=== PATIENT | female | born 2000 | race Hispanic/Latino ===

== ENCOUNTER 2020-01-02 01:52 | Inpatient (IN) | payer OTHER ==
[2020-01-02] VITALS (28 sets, daily range): BP systolic 107–154; BP diastolic 57–103
[~2020-01-02] VITALS: Ht 165.1 cm; Wt 111.1 kg
[2020-01-02] MEDS ORDERED: LACTATED RINGER'S 1000 ML IV STA (03:37)
--- NOTE | 2020-01-02 03:37 | HPEPDOC ---
Obstetrical History & Physical General Date of Admission Jan 02, 2020 at 03:03 History of Present Illness Patient is a at 41.1wks by LMP. C/o ctx all day. Mild leakage of fluid in car around 0200. No VB. +FM. No headache or visual changes. Chief Complaint: Contractions, term, LOF, term Care Care: Limited Care Dating Final EDC: Dec 25, 2019 Final EDC by: LMP Antepartum Course Height (inches): 65 Pre- weight (lbs.): 187 Admission Weight (lbs.): 243 Change in Weight (lbs.): 55 Past Medical History Past Obstetrical History : Past Obstetrical History: Primgravida [employer] History: History of STD (chlamydia 2017) Past Medical History Medical History none Surgical History: Denies/None Family History Significant Family History: No pertinent family hx Family History none Social History Marital Status: Family situation: Spouse/partner home Psychosocial History: No pertinent psych hx * Smoker: non-smoker Alcohol: Denies Drugs: denies Abuse Violence Screening Have you been hit/kicked/slapp: No Have you been sexually assault: No Imunizations Tdap status: current Influenza Status: current Physical Examination Physical Examination GENERAL: Alert and oriented times three. BREAST: . ABDOMEN: Gravid and non-tender to touch. FETUS: Is vertex (VTX) by sterile vaginal examination (SVE), fetus is vertex (VTX) by US. HEART RATE: Regular rate and rhythm. LUNGS: Clear to auscultation (CTA). EXTREMITIES: No edema. SSE: +pooling, +nitrazine, +ferning Pertinent Laboratoy Data Blood Type: O+ RBC Antibody Screen: Negative HIV: Negative Hepatitis B: Negative Rapid Plasma Reagin: Nonreactive Rubella: Immune Varicella: Immune Chlamydia/Gonorrhea: Negative Group B Streptococcus: Negative Glucose Tolerance Test: 116 Anatomy Ultrasound Ultrasound Date: Oct 08, 2019 Placenta Location: Anterior Normal Anatomy: Yes Placenta Previa: No Estimated Weight (grams): 1283 Steroid Therapy Steroid Therapy: No Vaginal Examination Dilation: 1cm Effacement: 50% Station: -2 Cervical Consistency: Medium Cervical Position: Middle Presentation: Cephalic presentation Assessment Heart Rate (FHR): 150 Variability: Moderate Accelerations: Positive Decelerations: None Tocometer Contractions: Yes Frequency: irregular Multi-drug resistant Organism: No history of MDRO Assessment/Plan Assessment Patient is a at 41.1wks by LMP. She will be admitted for SROM. Will start IOL with PO Miso d/w patient. Patient counselled on expected and low but possible risk of VAVD or CD or risk of trauma to pelvic floor or perineum. Increased risk of chorio due to early SROM. Patient voiced understanding. Plan Admit and orient. Global Program Manager and consent. Diet: Regular. Group B Streptococcus (GBS) negative. Labs and intravenous (IV) per unit protocol. Counseled on Pitocin and induction of labor (IOL). Lactated Ringers (LR): Bolus 500 mL, then at 125 mL/hr. Anticipate normal spontaneous delivery (). C-S or VAVD as appropriate. Pain mgt per patient desire. Lacey Burnett MD Jan 02, 2020 03:36
[2020-01-02] MEDS ORDERED: ACETAMINOPHEN 500 MG TAB PO PRN ×2 (03:45→14:15)
[2020-01-02] MEDS ORDERED: BUTORPHANOL 2 MG/ML INJ (J0595) IV PRN (03:45)
[2020-01-02] MEDS ORDERED: diphenhydrAMINE 25MG CAP PO PRN (03:45)
[2020-01-02] MEDS ORDERED: MOM 30ML SUSPENSION UDC PO PRN (03:45)
[2020-01-02] MEDS ORDERED: PROMETHAZINE INJ 25 MG/ML VIAL (J2550) IV PRN (03:45)
[2020-01-02] MEDS ORDERED: miSOPROStol 25 MCG 1/4 TAB (S0191) PO ONE (03:45)
[2020-01-02] MEDS ORDERED: CALCIUM CARBONATE 500 MG CHEW U/D PO PRN (03:45)
[2020-01-02 04:06] LABS: BASO % 0.2 % (0.0-1.0); EOS # 0.1 10^3/uL (0.0-0.5); EOS % 0.5 % (0.0-3.0); HEMOGLOBIN 11.3 g/dl (12.0-15.5); LYMPH % 10.8 % (24.0-44.0); MEAN CORPUSCULAR HEMOGLOBIN 27.6 pg (27.0-33.0); MEAN CORPUSCULAR HGB CONC 33.2 g/dl (32.0-36.5); MEAN CORPUSCULAR VOLUME 83.1 fl (80.0-96.0); MONO # 0.9 10^3/uL (0.0-0.8); MONO % 4.7 % (0.0-5.0); NEUTROPHILS # 15.3 10^3/uL (1.5-8.5); NEUTROPHILS % 83.4 % (36.0-66.0); PLATELET COUNT, AUTOMATED 275 10^3/uL (150-450); RED BLOOD COUNT 4.09 10^6/uL (4.00-5.40); WHITE BLOOD COUNT 18.3 10^3/uL (4.0-10.0)
[2020-01-02 04:55] LABS: ALT/SGPT 11 U/L (12-78); BILIRUBIN,TOTAL 0.2 MG/DL (0.2-1.0); CREATININE FOR GFR 0.61 MG/DL (0.55-1.30); LDH LACTATE DEHYDROGENASE 177 U/L (84-246); URIC ACID 4.6 MG/DL (2.6-6.0)
[2020-01-02] MEDS: ONDANSETRON 4MG/2ML VIAL IV SCH ×2 (07:00→12:00)
[2020-01-02] MEDS: LR 1,000 ML IV SCH ×2 (07:14→11:37)
--- NOTE | 2020-01-02 08:52 | IPNPDOC ---
Obstetrical Progress Note Date of Service Jan 02, 2020 Subjective 19yo @41+1, O+, GBS- PROM at late term, augmentation of labor Objective Vital Signs Date Time Temp Pulse Resp B/P (MAP) Pulse Ox O2 Delivery O2 Flow Rate FiO2 01/02/20 07:12 97.7 90 18 144/76 (98) 97 Room Air Assessment Variability: Other (frequent breaks in monitoring with inability to determine baseling. Nurse at bedside working with patient to reposition external monitors, FHR 140-150. Maternal pulse ox placed for verification) Tocometer Contractions: Yes (TOCO repositioned to obtain contractions, palpating moderate every 2-4 min) Assessment and Plan Age: 19 : 1 Group B Streptococcus: Negative Anticipate: Vaginal Delivery Additional Comments lr @125ml/hr, continuous efm x2, evaluate for need for additional augmentation with pitocin, if unable to monitor, consider FSE, evaluate for cervical dilation as indicated, anticipate vaginal delivery VI GONSALES CNM Jan 02, 2020 08:52
[2020-01-02] MEDS ORDERED: FENTANYL 2MCG/ML ROPIVACAINE 0.2% IN 0.9% NACL 100ML IVBAG As Ordered ONE (09:18)
[2020-01-02] MEDS ORDERED: diphenhydrAMINE 50MG/ML VIAL (J1200) IV PRN (10:15)
[2020-01-02] MEDS ORDERED: EPIDURAL COMMENT XX SCH (10:15)
[2020-01-02] MEDS ORDERED: EPIDURAL/PCA KEYS XX PRN (10:15)
[2020-01-02] MEDS ORDERED: FENTANYL/ROPIVACAINE/NACL BAG 100 ML EPIDURAL SCH (10:15)
[2020-01-02] MEDS ORDERED: ePHEDrine SULFATE 25 MG/5 ML(5MG/ML) SYRINGE IV PRN (10:15)
[2020-01-02] MEDS ORDERED: NALOXONE INJ 0.4MG/1ML VIAL (J2310 PER 1MG) IV PRN (10:15)
[2020-01-02] MEDS ORDERED: ONDANSETRON 4MG/2ML VIAL IV PRN (10:15)
[2020-01-02] MEDS ORDERED: LACTATED RINGER'S 1000 ML IV PRN (10:15)
[2020-01-02] MEDS ORDERED: REFRIGERATOR IV KEYS XX PRN (10:15)
--- NOTE | 2020-01-02 10:54 | IPNPDOC ---
Obstetrical Progress Note Date of Service Jan 02, 2020 Subjective States feeling more comfortable on epidural anesthesia Objective Vital Signs Date Time Temp Pulse Resp B/P (MAP) Pulse Ox O2 Delivery O2 Flow Rate FiO2 01/02/20 07:12 97.7 90 18 144/76 (98) 97 Room Air Assessment Heart Rate (FHR): 150 Variability: Moderate Accelerations: Positive Decelerations: None, Variable Heart Rate Tracing: Category II Tocometer Contractions: Yes Frequency: every 2-5 min. Sterile Vaginal Examination Dilation: 6 cm Effacement (%): 90% Station: -2 Cervical Consistency: Soft Cervical Position: Middle Postion/Presentation: Cephalic presentation Assessment and Plan Status: Reassuring Group B Streptococcus: Negative Anticipate: Vaginal Delivery Additional Comments A:19yo @41+1, O+, GBS-, SROM clear, active labor LTG P: lr @125ml/hr, continuous efm x2, monitor for change in or maternal status, encourage frequent maternal position changes, anticipate vaginal deliver y VI GONSALES CNM Jan 02, 2020 10:54
[2020-01-02] MEDS ORDERED: OXYTOCIN 30 UNITS IN 0.9% NaCl 500ML IV BAG (J2590) As Ordered ONE (11:40)
[2020-01-02] MEDS ORDERED: LIDOCAINE 1% MDV 20ML VIAL As Ordered ONE (13:31)
[2020-01-02] MEDS ORDERED: OXYTOCIN DRIP 30 UNITS in IV 1 EA IV SCH ×4 (14:14)
[2020-01-02] MEDS ORDERED: METHYLERGONOVINE MALEATE 0.2 MG TAB PO PRN (14:15)
[2020-01-02] MEDS ORDERED: MEASLES,MUMPS,RUBELLA VACCINE INJ (MMR-II) (90707) SC SCH (14:15)
[2020-01-02] MEDS ORDERED: LIDOCAINE 1% MDV 20ML VIAL INFIL ONE (14:15)
[2020-01-02] MEDS ORDERED: IBUPROFEN 800 MG TAB PO PRN (14:15)
[2020-01-02] MEDS ORDERED: DIBUCAINE 1% OINTMENT 30GM TOP PRN (14:15)
--- NOTE | 2020-01-02 14:35 | DNPDOC ---
[facility] Delivery Note Delivery Note DATE OF DELIVERY: [02Jan2020] PREDELIVERY DIAGNOSIS: [41]-[1]/7 weeks' gestation and labor. POST DELIVERY DIAGNOSIS: Delivered. PROCEDURE: [Spontaneous vaginal delivery]. LEATHER POLISHER: SRIKANTH Gonsales ANESTHESIA: [epidural]. ESTIMATED BLOOD LOSS: [400] mL. FINDINGS: 3500 gm male , Score [8]/[9], nuchal cord times [1]. DELIVERY SUMMARY: Patient is a [19]-year-old [1] now para [1]-[0]-[0]-[1] who was admitted to labor and delivery for [SROM] on [02Jan2020]. Pt complained of pain not releived by epidural and was found to be C/C/+1, gradual progress was made to with maternal pushing. The head delivered in CARTER, a loose nuchal cord was noted after delivery of the head. The left anterior shoulder delivered easily followed by the posterior shoulder and the was somersaulted towards the maternal left thigh, the cord manually reduced and the infant placed immediately skin to skin on the maternal abdomen. Pitocin infusion was bolused. The cord was clamped after pulsation ceased and cut by the CNYvan The placenta delivered spontaneously in feldman presentation with moderate bleeding. The fundus was massaged until firm and several clots were swept out of the cervix. A left labial laceration was identified, local lidocaine was placed for maternal comfort . Repair was completed in the usual fashion using 3-[address] A small additional clot was swept from the cervix with bleeding appropriately slowed. Mother and baby entered the recovery phase in stable condition. VI GONSALES CNM Jan 02, 2020 14:35
[2020-01-03 06:00] VITALS: BP 132/79
[2020-01-03] MEDS: PRENATAL VITAMINS CHEWABLE TABLET PO SCH (08:18)
[2020-01-03] MEDS: FERROUS SULFATE 325MG TAB PO SCH (08:18)
[2020-01-03] MEDS: DOCUSATE SODIUM 100 MG CAP PO PRN ×2 (08:18→19:55)
[2020-01-03 18:00] VITALS: BP 129/91
[2020-01-04 06:00] VITALS: BP 139/86
[2020-01-04] MEDS: PRENATAL VITAMINS CHEWABLE TABLET PO SCH (08:12)
[2020-01-04] MEDS: FERROUS SULFATE 325MG TAB PO SCH (08:12)
[2020-01-04] MEDS ORDERED: INFLUENZA QUADRIVALENT PF VACCINE 0.5ML SYRINGE IM ONE (16:00)
--- NOTE | 2020-01-16 11:47 | IPN ---
DATE: 01/03/2020 SUBJECTIVE: This patient requested circumcision of her male infant. After discussing the risks and benefits of the circumcision, the medical and non-medical indications, the penile block and aftercare, expressed an understanding of penile block and aftercare and bleeding, signed the consent form, all questions were answered; a 20 minute discussion. We await clearance by the circle edger. LEONID
--- NOTE | 2020-01-16 11:48 | IPN ---
DATE: 01/04/2020 SUBJECTIVE: This patient initially requested circumcision of her male infant. She signed the consent form, all questions were answered. She then changed her mind and decided not to have her male infant circumcised and therefore the procedure was not performed. LEONID
== END 2020-01-04 16:00 | disposition home or self-care (01) | DRG 807 ==
LOC: M LDO 01:52 → M LDI 03:03 → M OBS 16:15
PROVIDERS: ADMIT Obstetrics & Gynecology; ATTEND Registered Nurse
PROC: 10E0XZZ Delivery of Products of Conception, External Approach (ICD-10-PCS; principal; 2020-01-02)
PROC: 0HQ9XZZ Repair Perineum Skin, External Approach (ICD-10-PCS; 2020-01-02)
DX: O42.02 Full-term premature rupture of membranes, onset of labor within 24 hours of rupture (principal); Z37.0 Single live birth; Z3A.41 41 weeks gestation of pregnancy; O48.0 Post-term pregnancy; O69.81X0 Labor and delivery complicated by cord around neck, without compression, not applicable or unspecified; O70.0 First degree perineal laceration during delivery

== ENCOUNTER 2020-06-11 18:45 | Emergency (ER) | payer OTHER ==
[~2020-06-11] VITALS: Ht 165.1 cm; Wt 111.4 kg
[2020-06-11] MEDS ORDERED: KETOROLAC TROMETHAMINE 10 MG TAB PO ONE (19:20)
[2020-06-11] MEDS ORDERED: CYCLOBENZAPRINE 10MG TABLET PO ONE (19:20)
[2020-06-11] MEDS ORDERED: NAPR-837 PO (20:35)
[2020-06-11] MEDS ORDERED: CYCL5TAB PO (20:35)
[2020-06-11] MEDS ORDERED: CIPR-249 PO (20:35)
[2020-06-11 20:39] VITALS: BP 131/75
[2020-06-11] MEDS ORDERED: CIPROFLOXACIN 500MG TABLET PO ONE (20:45)
== END 2020-06-11 20:55 | disposition home or self-care (01) ==
LOC: M ED 18:45
DX: S39.012A Strain of muscle, fascia and tendon of lower back, initial encounter (principal); W01.0XXA Fall on same level from slipping, tripping and stumbling without subsequent striking against object, initial encounter; N39.0 Urinary tract infection, site not specified; Y92.9 Unspecified place or not applicable; Y93.9 Activity, unspecified; Y99.9 Unspecified external cause status

== ENCOUNTER 2021-08-01 14:21 | Emergency (ER) | payer OTHER ==
[~2021-08-01] VITALS: Ht 165.1 cm; Wt 110.0 kg
[2021-08-01 14:21] VITALS: BP 125/74
[~2021-08-01 14:21] MED LIST: CIPR-249 PO; CYCL5TAB PO; NAPR-837 PO
[2021-08-01] MEDS ORDERED: PRENTAB9 PO (16:20)
[2021-08-01] MEDS ORDERED: ACET-897 PO (16:20)
[2021-08-01] MEDS ORDERED: CYCL5TAB PO (17:12)
== END 2021-08-01 15:35 | disposition admitted as inpatient to this hospital (09) ==
LOC: M ED 14:21
DX: Z53.9 Procedure and treatment not carried out, unspecified reason (principal)

== ENCOUNTER 2021-08-01 15:49 | Outpatient (CLI) | payer OTHER ==
[~2021-08-01] VITALS: Ht 165.1 cm; Wt 112.3 kg
[2021-08-01 16:10] VITALS: BP 115/70
[2021-08-01] MEDS ORDERED: PRENTAB9 PO (16:20)
[2021-08-01] MEDS ORDERED: ACET-897 PO (16:20)
[2021-08-01] MEDS ORDERED: CYCLOBENZAPRINE 10MG TABLET PO ONE (17:00)
[2021-08-01] MEDS ORDERED: CYCL5TAB PO (17:12)
== END 2021-08-01 17:00 ==
LOC: M LDO 15:49
PROVIDERS: ATTEND Obstetrics & Gynecology
DX: O26.893 Other specified pregnancy related conditions, third trimester (principal); R25.2 Cramp and spasm; Z3A.38 38 weeks gestation of pregnancy
CPT/HCPCS: 59025; G0378; G0463

== ENCOUNTER 2021-08-21 14:14 | Inpatient (IN) | payer OTHER ==
[~2021-08-21] VITALS: Ht 165.1 cm; Wt 112.7 kg
[2021-08-21] VITALS (40 sets, daily range): BP systolic 73–168; BP diastolic 37–104
[~2021-08-21 14:14] MED LIST changes: +ACET-897 PO; +PRENTAB9 PO
[2021-08-21] MEDS ORDERED: LACTATED RINGER'S 1000 ML IV STA (15:06)
[2021-08-21] MEDS ORDERED: OXYTOCIN DRIP 30 UNITS in IV 1 EA IV PRN ×4 (15:10)
[2021-08-21 15:13] LABS: HEMATOCRIT 37.4 % (36.0-47.0); HEMOGLOBIN 12.6 g/dl (12.0-15.5); MEAN CORPUSCULAR HEMOGLOBIN 27.7 pg (27.0-33.0); MEAN CORPUSCULAR HGB CONC 33.7 g/dl (32.0-36.5); MEAN CORPUSCULAR VOLUME 82.2 fl (80.0-96.0); PLATELET COUNT, AUTOMATED 245 10^3/uL (150-450); RED BLOOD COUNT 4.55 10^6/uL (4.00-5.40); WHITE BLOOD COUNT 11.6 10^3/uL (4.0-10.0)
[2021-08-21] MEDS ORDERED: diphenhydrAMINE 50MG/ML VIAL (J1200) IV PRN (15:44)
[2021-08-21] MEDS ORDERED: ONDANSETRON 4MG/2ML VIAL IV PRN ×2 (15:44→19:55)
[2021-08-21] MEDS ORDERED: EPIDURAL COMMENT XX SCH (15:44)
[2021-08-21] MEDS ORDERED: LACTATED RINGER'S 1000 ML IV PRN (15:44)
[2021-08-21] MEDS ORDERED: EPIDURAL/PCA KEYS XX PRN (15:44)
[2021-08-21] MEDS ORDERED: REFRIGERATOR IV KEYS XX PRN (15:44)
[2021-08-21] MEDS ORDERED: ePHEDrine SULFATE 25 MG/5 ML(5MG/ML) SYRINGE IV PRN (15:44)
[2021-08-21] MEDS ORDERED: NALOXONE INJ 0.4MG/1ML VIAL (J2310 PER 1MG) IV PRN (15:44)
[2021-08-21] MEDS ORDERED: FENTANYL/ROPIVACAINE/NACL BAG 100 ML EPIDURAL SCH (15:44)
[2021-08-21] MEDS ORDERED: FENTANYL 2MCG/ML ROPIVACAINE 0.2% IN 0.9% NACL 100ML IVBAG As Ordered ONE (15:47)
[2021-08-21] MEDS: LR 1,000 ML IV SCH ×2 (16:03→17:35)
[2021-08-21 19:39] LABS: CORD GAS ABE A -7.4; CORD GAS ABE V -5.4; CORD GAS HCO3 A 19.5 MEQ/L; CORD GAS HCO3 V 18.9 MEQ/L; CORD GAS O2 SAT A 84.6 %; CORD GAS PCO2 A 44.1 mmHg; CORD GAS PCO2 V 33.6 mmHg; CORD GAS PH A 7.263 UNITS; CORD GAS PH V 7.368 UNITS; CORD GAS PO2 A 43.5 mmHg; CORD GAS PO2 V 34.6 mmHg; CORD GAS SBC A 18.3 MEQ/L; CORD GAS SBC V 19.7 MEQ/L; CORD GAS TCO2 A 20.8 MEQ/L; CORD GAS TCO2 V 19.9 MEQ/L
[2021-08-21] MEDS ORDERED: RHOGAM 300 MCG (1500 IU) INJ (J2790) IM SCH (19:55)
[2021-08-21] MEDS ORDERED: DIBUCAINE 1% OINTMENT 30GM TOP PRN (19:55)
[2021-08-21] MEDS ORDERED: DOCUSATE SODIUM 100MG CAPSULE PO PRN (19:55)
[2021-08-21] MEDS ORDERED: PROMETHAZINE 25 MG TAB PO PRN (19:55)
[2021-08-21] MEDS ORDERED: METHYLERGONOVINE MALEATE 0.2 MG TAB PO PRN (19:55)
[2021-08-21] MEDS ORDERED: LR 1,000 ML IV SCH (19:55)
[2021-08-21] MEDS ORDERED: MEASLES,MUMPS,RUBELLA VACCINE INJ (MMR-II) (90707) SC SCH (19:55)
[2021-08-21] MEDS: ACETAMINOPHEN 500 MG TAB PO SCH (21:00)
[2021-08-21] MEDS ORDERED: METHYLERGONOVINE MALEATE 0.2 MG/ML VIAL (J2210) IM STA (21:29)
[2021-08-21] MEDS ORDERED: LR 500 ML IV SCH (21:30)
[2021-08-21] MEDS ORDERED: LR 500 ML IV ONE (21:40)
[2021-08-21] MEDS: IBUPROFEN 800 MG TAB PO SCH (22:00)
[2021-08-21] MEDS: METHYLERGONOVINE MALEATE 0.2 MG TAB PO SCH (22:00)
[2021-08-21 23:24] LABS: HEMATOCRIT 29.4 % (36.0-47.0); MEAN CORPUSCULAR HEMOGLOBIN 27.7 pg (27.0-33.0); MEAN CORPUSCULAR VOLUME 81.4 fl (80.0-96.0); PLATELET COUNT, AUTOMATED 197 10^3/uL (150-450); RED BLOOD COUNT 3.61 10^6/uL (4.00-5.40); WHITE BLOOD COUNT 18.1 10^3/uL (4.0-10.0)
[2021-08-22] MEDS: ACETAMINOPHEN 500 MG TAB PO SCH ×4 (02:59→21:34)
[2021-08-22] MEDS: METHYLERGONOVINE MALEATE 0.2 MG TAB PO SCH ×3 (03:57→15:52)
[2021-08-22 05:24] VITALS: BP 97/63
[2021-08-22] MEDS: IBUPROFEN 800 MG TAB PO SCH ×3 (05:57→21:34)
[2021-08-22 07:50] LABS: HEMATOCRIT 29.4 % (36.0-47.0); HEMOGLOBIN 9.8 g/dl (12.0-15.5); MEAN CORPUSCULAR HEMOGLOBIN 27.8 pg (27.0-33.0); MEAN CORPUSCULAR HGB CONC 33.3 g/dl (32.0-36.5); MEAN CORPUSCULAR VOLUME 83.3 fl (80.0-96.0); PLATELET COUNT, AUTOMATED 219 10^3/uL (150-450); RED BLOOD COUNT 3.53 10^6/uL (4.00-5.40); WHITE BLOOD COUNT 15.5 10^3/uL (4.0-10.0)
[2021-08-22] MEDS: PRENATAL VITAMINS CHEWABLE TABLET PO SCH (08:34)
[2021-08-22 17:56] VITALS: BP 126/68
[2021-08-23] MEDS: ACETAMINOPHEN 500 MG TAB PO SCH ×2 (03:49→10:55)
[2021-08-23 06:00] VITALS: BP 107/66
[2021-08-23] MEDS: IBUPROFEN 800 MG TAB PO SCH (06:04)
[2021-08-23] MEDS: PRENATAL VITAMINS CHEWABLE TABLET PO SCH (08:03)
== END 2021-08-23 12:07 | disposition home or self-care (01) | DRG 807 ==
LOC: M LDI 14:14 → M OBS 08-22 01:00
PROVIDERS: ADMIT Obstetrics & Gynecology; ATTEND Obstetrics & Gynecology
PROC: 10E0XZZ Delivery of Products of Conception, External Approach (ICD-10-PCS; principal; 2021-08-21)
DX: O48.0 Post-term pregnancy (principal); Z37.0 Single live birth; O99.214 Obesity complicating childbirth; E66.9 Obesity, unspecified; Z3A.41 41 weeks gestation of pregnancy

== ENCOUNTER 2022-05-17 11:03 | Day surgery (SDC) | payer OTHER ==
[~2022-05-17] VITALS: Ht 165.1 cm; Wt 106.3 kg
[2022-05-17] MEDS ORDERED: LR 1,000 ML IV SCH ×2 (11:25→14:40)
[2022-05-17] MEDS ORDERED: ACET-683 PO (11:25)
[2022-05-17 11:47] LABS: HEMATOCRIT 41.9 % (36.0-47.0); HEMOGLOBIN 13.1 g/dl (12.0-15.5)
[2022-05-17] MEDS ORDERED: fentaNYL 100 MCG/2 ML INJECTION As Ordered ONE (13:10)
[2022-05-17] MEDS ORDERED: MIDAZOLAM INJ 2MG/2ML VIAL As Ordered ONE (13:10)
[2022-05-17] MEDS ORDERED: ONDANSETRON 4MG 2ML VIAL As Ordered ONE (13:11)
[2022-05-17] MEDS ORDERED: KETOROLAC 60MG 2ML VIAL As Ordered ONE (13:11)
[2022-05-17] MEDS ORDERED: LIDOCAINE 2% 100MG/5ML SDV (FOR ANES.) As Ordered ONE (13:11)
[2022-05-17] MEDS ORDERED: propofoL 200 MG/20 ML VIAL As Ordered ONE (13:11)
[2022-05-17] MEDS ORDERED: LIDOCAINE W/EPINEPHRINE 1% 20ML VIAL As Ordered ONE (13:40)
[2022-05-17] MEDS ORDERED: LIDOCAINE 1% MDV 20ML VIAL As Ordered ONE (13:40)
[2022-05-17] MEDS ORDERED: IODINE STRONG SOLN 15ML BTL As Ordered ONE (13:41)
[2022-05-17] MEDS ORDERED: LEVONORGESTREL 52MG (MIRENA) IUD As Ordered ONE (13:52)
[2022-05-17] MEDS ORDERED: METOCLOPRAMIDE INJ 10MG/2ML VIAL IV PRN (14:40)
[2022-05-17] MEDS ORDERED: ONDANSETRON 4MG 2ML VIAL IV PRN (14:40)
[2022-05-17] MEDS ORDERED: fentaNYL 100 MCG/2 ML INJECTION IV PRN (14:40)
[2022-05-17] MEDS ORDERED: HYDROMORPHONE HCL 0.5 MG/ 0.5 ML SYRINGE IV PRN (14:40)
[2022-05-17] MEDS ORDERED: oxyCODONE 5MG TAB PO PRN ×2 (14:40→15:15)
[2022-05-17] MEDS ORDERED: ACETAMINOPHEN 325 MG TAB PO PRN (15:15)
[2022-05-17 15:50] VITALS: BP 130/73
== END 2022-05-17 16:01 | disposition home or self-care (01) ==
LOC: M SDC 11:03
PROVIDERS: ATTEND Obstetrics & Gynecology
DX: D06.9 Carcinoma in situ of cervix, unspecified (principal); Z30.431 Encounter for routine checking of intrauterine contraceptive device
CPT/HCPCS: 36415; 57522; 58300; 64435; 81025; 85014; 85018; 88307; J1100; J1885; J2250; J2405; J3010; J7298

== ENCOUNTER → 2022-11-01 | Outpatient (CLI) | payer OTHER ==
[~2022-11-01] MED LIST changes: +ACET-683 PO
== END ==
LOC: M WHC 08:09
PROVIDERS: ATTEND Nurse Practitioner Primary Care
DX: N63.22 Unspecified lump in the left breast, upper inner quadrant (principal)